=== PATIENT | female | born 1950 | race Caucasian/White ===

== ENCOUNTER 2021-09-26 18:58 | Emergency (ER) | payer OTHER ==
[2021-09-26] MEDS ORDERED: HYDROCODON-ACE1 EAC4 PO (23:46)
== END 2021-09-27 00:10 | disposition home or self-care (01) ==
LOC: ER1 18:58
DX: S42.031A Displaced fracture of lateral end of right clavicle, initial encounter for closed fracture (principal); S32.511A Fracture of superior rim of right pubis, initial encounter for closed fracture; S32.591A Other specified fracture of right pubis, initial encounter for closed fracture; W10.9XXA Fall (on) (from) unspecified stairs and steps, initial encounter; Y92.009 Unspecified place in unspecified non-institutional (private) residence as the place of occurrence of the external cause
CPT/HCPCS: 70450; 72192; 73030; 96374; 96375; 99284; J2270; J2405